=== PATIENT | female | born 1950 | race Caucasian/White ===

== ENCOUNTER 2017-11-07 12:29 | Day surgery (SDC) | payer MEDICARE, OTHER ==
[2017-11-06 08:34] VITALS: BMI 49.1
[2017-11-07] MEDS ORDERED: Phenylephrine 2.5% Ophth Soln 5 ML BOT ONE (13:47)
[2017-11-07] MEDS ORDERED: Cyclopentolate 1% Opth Drop 2 ML BOT ONE (13:47)
[2017-11-07] MEDS ORDERED: Dexamethasone 20 MG/5 ML VIAL ONE (14:01)
[2017-11-07] MEDS ORDERED: Ondansetron HCl/PF 4 MG/2 ML Vial ONE (14:01)
[2017-11-07] MEDS ORDERED: Lidocaine 1% PF 5 ML VIAL ONE (14:01)
[2017-11-07] MEDS ORDERED: PROPOFOL 200 MG/20 ML VIAL ONE (14:01)
[2017-11-07] MEDS ORDERED: Fentanyl 100 MCG/2 ML VIAL ONE (15:09)
--- NOTE | 2017-11-08 00:17 | OP ---
DATE OF PROCEDURE: 11/07/2017 PREOPERATIVE DIAGNOSIS: Dislocated intraocular lens, right eye. POSTOPERATIVE DIAGNOSIS: Dislocated intraocular lens, right eye. PROCEDURE: Intraocular lens repositioning with suture and vitrectomy, right eye. SURGEON: Rad Griffith M.D. ANESTHESIA: General endotracheal anesthesia. PROCEDURE IN DETAIL: The patient was identified in the preoperative holding area. Appropriate [facility] med consent for the planned surgical procedure on the right eye had been obtained. The patient was t ransported to the operative suite. Appropriate cardiopulmonary monitoring was established. General endotracheal anesthesia was initiated. Local anesthesia was obtained using a retrobulbar block. The intraocular lens was recentered using a Sins[place] hook and prolapsed into the anterior chamber. [place] ol was infused into the eye, constricting the pupil. The haptics were fixated at the 1 o'clock and 7 o'clock positions with a 10-0 Prolene sutures tied with a modified Siepser knot. A vitrectomy was p erformed, both in front of and behind the intraocular lens and sweep of the anterior chamber in real field, no further vitreous adhesions. Both wide field viewing and indirect ophthalmoscopy was used t o examine the retina in 360 degrees. No holes, breaks, or tears were identified. Prophylactic laser was placed behind the sclerotomy sites. Trocars were removed. Eye was noted to retain pressure wel l. Retrobulbar Kenalog and subconjunctival Ancef were placed. Antibiotic ointment was placed, and t he eye was patched and shielded. The patient was taken to the postoperative recovery unit in good co ndition having suffered no immediate perioperative complications. The patient was instructed to keep patch and shield on, avoid lifting or bending, and follow up in the morning with Dr. Griffith.
== END 2017-11-07 18:00 | disposition home or self-care (01) ==
LOC: SDC 12:29
PROVIDERS: ATTEND Ophthalmology Retina Specialist
PROC: 08W Eye, Revision (ICD-10-PCS; principal; 2017-11-07)
DX: T85.22XA Displacement of intraocular lens, initial encounter (principal); Z79.899 Other long term (current) drug therapy
CPT/HCPCS: J1100; J2001; J2405; J2704; J3010

== ENCOUNTER 2018-02-11 08:50 | Outpatient (CLI) | payer MEDICARE, OTHER | END 2018-02-11 08:51 | disposition home or self-care (01) | LOC: BICMAMMO 08:50 | PROVIDERS: ATTEND Obstetrics & Gynecology | DX: R92.8 Other abnormal and inconclusive findings on diagnostic imaging of breast (principal); N63.10 Unspecified lump in the right breast, unspecified quadrant; N63.20 Unspecified lump in the left breast, unspecified quadrant | CPT/HCPCS: 77066; G0279 ==